=== PATIENT | female | born 1945 | race Caucasian/White ===

== ENCOUNTER → 2017-03-30 09:15 | Outpatient (CLI) | payer MEDICARE, OTHER ==
[~2017-03-30 09:15] MED LIST: CRESTOR10 MG PO; GLUCOPHAGE500 MG PO; LISINOPRIL-HCTZ1 T13 PO; LOPRESSOR25 MG PO; OMEPRAZOLE20 M1 PO; PROVENTIL HFA6.7 GM INH; SPIRIVA18 MCG INH; ULTRAM50 MG PO
--- NOTE | 2017-04-05 12:49 | EC ---
PATIENT:NAHED RESENDIZ DATE OF SERVICE: 03/30/17 SEX: F MEDICAL RECORD: [id number] DATE OF : 49 LOCATION:D[facility] AGE OF PATIENT: 71 ADMISSION DATE: 03/30/17 REFERRING PHYSICIAN: INTERPRETING PHYSICIAN: JAYSON BERTRAND MD ECHOCARDIOGRAM REPORT ECHO CHARGES 4 ECHO COMPLETE CLINICAL DIAGNOSIS: CP/DIZZINESS/HTN/CAD/ANGINA ECHOCARDIOGRAPHIC MEASUREMENTS (adult normal given) AC root (d.<3.7cm) 3.4 cm LV Septum d (<1.2 cm> 1.6 cm Valve Excursion 1.5 cm LV Septum (systole) 2.5 cm Left Atria (s.<4.0cm> 3.7 cm LVPW d(<1.2cm) 1.4 cm RV (d.<2.3cm) 2.8 cm LVPW (sytole) 2.0 cm LV diastole(<5.6CM) 5.2 cm MV E-F(>70mm/sec) cm LV systole 3.1 cm LVOT Diameter 1.8 cm MV exc.(>10mm) cm Est.ejection fraction (50-75%) % Pericardial Effusion N DOPPLER: LVIT cm/sec A 73.0 cm/sec E 101 cm/sec LA cm/sec RVSP 61.0 mmHg LVOT 104 cm/sec AOP1/2T m/s Asc. Ao 179 cm/sec RVOT 52.0 cm/sec RA cm/sec PA 79.0 cm/sec AV Gradient Peak 13.0 mmHg AV Mean 6.8 mmHg AV Area 1.6 cm MV Gradient Peak 5.1 mmHg MV Mean 1.7 mmHg MV Area cm COMMENTS: Voice Network Administrator: Jeremie HERMANOE Addressograph Operator: 4 Dr. Bertrand TAPE# PACS DATE OF SERVICE: 03/30/2017 PROCEDURE: Transthoracic echocardiogram FINDINGS: 1. The patient shows evidence of moderate left ventricular hypertrophy with preserved LV systolic function. Ejection fraction of 55% to 60%. 2. The mitral valve has mild mitral annular calcification. There is no evidence of significant mitral regurgitation. 3. The aortic valve has evidence of sclerosis without evidence of significant ECHOCARDIOGRAM REPORT [id number] NAHED RESENDIZ stenosis. There is trace aortic insufficiency. 4. The tricuspid valve has evidence of moderate tricuspid regurgitation with right ventricular systolic pressures at 50-55 mmHg. 5. The right ventricle appears to be mildly dilated and there is right ventricular hypertrophy with preserved right ventricular function. 6. Interatrial septum appears to be intact. 7. The right atrium appears to be mildly dilated. IMPRESSION: The patient has evidence of hypertensive heart disease, mild aortic sclerosis and moderate pulmonary hypertension. TRANSINT:[id number] Voice Confirmation ID: [id number] DOCUMENT ID: [id number] JAYSON BERTRAND MD at 1249 CC: [id number] DICTATION DATE: 04/02/17 0756 CALENDERING MACHINE OPERATOR: 04/02/17 0906 DEP CLI 03/30/17 [facility] [address] [place] [address]
[2017-05-09 07:29] VITALS: BMI 24.8
== END | disposition home or self-care (01) ==
LOC: D.ECHO 09:15
DX: I10 Essential (primary) hypertension (principal); R42 Dizziness and giddiness; R07.9 Chest pain, unspecified; I25.10 Atherosclerotic heart disease of native coronary artery without angina pectoris; Z95.1 Presence of aortocoronary bypass graft; I20.9 Angina pectoris, unspecified

== ENCOUNTER → 2017-04-16 15:58 | Outpatient (CLI) | payer MEDICARE, OTHER ==
[2017-05-09 07:29] VITALS: BMI 24.8
== END | disposition home or self-care (01) ==
LOC: D.LABREF 15:58
DX: I50.9 Heart failure, unspecified (principal)

== ENCOUNTER 2017-05-09 06:55 | Outpatient (CLI) | payer MEDICARE, OTHER ==
[~2017-05-09] VITALS: Ht 160 cm; Wt 63.6 kg
--- NOTE | ~2017-05-09 | HEMODYNAMI ---
PATIENT:NAHED RESENDIZ MEDICAL RECORD: [id number] : 49 LOCATION:[facility] ADMISSION DATE: 05/09/17 Generatedon:05/09/201711:03 Patient name: NAHED RESENDIZ Patient #: [id number] SSN: : 1945 Date of study: 05/09/2017 Page: Of Hemodynamic Procedure Report Patient Data Patient Demographics Procedure consent was obtained First Name: NAHED Gender: Female Last Name: ASTRID : 1945 [facility] Initial: MARIANNA Age: 71 year(s) Patient #: [id number] Race: Unknown Additional ID: [id number] Contact details Address: [address] [place] [address] State: [place] City: [facility] Zip code: [address] Past Medical History Allergies: No known allergies Admission Admission Data Admission Date: 05/09/2017 Admission Time: 6:55 Procedure Procedure Types Cath Procedure Diagnostic Procedure LHC LHC w/Coronaries w/Grafts Miscellaneous Procedures Moderate Sedation up to 15 minutes Peripheral Cath Diagnostic Procedure Cath Peripheral Renal Arteriogram Procedure Description Procedure Date Procedure Date: 05/09/2017 Procedure Start Time: 10:41 Procedure End Time: 11:03 Procedure Staff Name Function Lion Middleton MD Performing Physician Yu Palmer RT Monitor Margie Guevara RT Scrub Helen Uribe RN Nurse Procedure Data Cath Procedure Fluoroscopy Diagnostic fluoroscopy Total fluoroscopy Time: 5.2 time: 5.2 min min Diagnostic fluoroscopy Total fluoroscopy dose: 410 dose: 410 mGy mGy Contrast Material Contrast Material Type Amount (ml) Isovue 300 70 Entry Location Entry Primary Successful Side Size Upsize Upsize Entry Closure Succes sful Closure Location (Fr) 1 (Fr) 2 (Fr) Remarks Device Remarks Femoral Right 5 Fr Exoseal artery Estimated blood loss: 5 ml Diagnostic catheters Device Type Used For End Catheter Placement Cordis 5Fr JL 4.0 Left Coronary Catheter (MP) Angiography Cordis 5Fr 3DRC Catheter Right Coronary (MP) Angiography Cordis 5Fr 3DRC Catheter Internal mammary (MP) arteriography Cordis 5Fr Pigtail LV Angiography Catheter (MP) Cordis 5Fr Pigtail Aortic Root Catheter (MP) Angiography Cordis 5Fr Pigtail Renal Catheter (MP) arteriography with flush -selective Procedure Complications No complications Procedure Medications Medication Administration Route Dosage Oxygen NC 2 l/min Lidocaine 2% added to field 20 Heparin Flush Bag added to field 2 bags (1000units/500ml NS) 0.9% NaCl I.V. 100 ml/hr Versed I.V. 1 mg Fentanyl I.V. 25 mcg Hemodynamics Rest Heart Rate: 73 (bpm) Pressure Samples Time Site Value (mmHg) Purpose Heart Use Rate(bpm) 10:54 LV 162/4,24 EDP 63 10:54 AO 154/79(111) Pullback 68 10:54 LV 154/19,20 Pullback 68 Gradients Valve Time Site 1 Site 2 Mean SEP/DFP Peak To Heart Use (mmHg) (sec/min) Peak Rate (mmHg) (bpm) Aortic 10:54 LV AO 2 12 0 68 154/19,20 154/79(111) Calculations Valve P-P Mean Valve Index Valve Source Name Gradient Area Flow (cm2) Aortic 0 2 0 2 Snapshots Pre Cath Intra NCS Post Cath Vital Signs Time Heart Resp SPO2 etCO2 NIBP (mmHg) Rhythm Pain Sedation Rate (ipm) (%) (mmHg) Status Level (bpm) 10:30:01 61 23 95 14.2 143/93(113) NSR 0 (11) 10(A) , No pain 10:34:39 62 13 98 33 155/88(141) NSR 0 (11) 10(A) , No pain 10:39:24 61 21 98 36 145/76(125) NSR 0 (11) 10(A) , No pain 10:44:07 62 19 97 40.6 144/77(115) NSR 0 (11) 9(A) , No pain 10:48:51 60 19 97 38.3 149/76(111) NSR 0 (11) 9(A) , No pain 10:53:32 74 22 97 37.6 133/78(105) NSR 0 (11) 9(A) , No pain 10:58:31 63 18 98 32.3 Measuring NSR 0 (11) 10(A) , No pain 10:58:50 63 16 98 42.1 148/79(126) NSR 0 (11) 10(A) , No pain 11:03:30 60 22 98 39.8 159/81(128) NSR 0 (11) 10(A) , No pain Medications Time Medication Route Dose Verified Delivered Reason Notes Effe ctiveness by by 10:28:10 Oxygen NC 2 Lion Buffie used for l/min Kane Uribe RN procedure MD 10:28:24 Lidocaine 2% added 20ml Lion Lion for local to vial Kane Middleton MD anesthetic field 10:28:32 Heparin Flush added 2 Lion Lion used for Bag to bags Kane Middleton MD procedure (1000units/500ml field LIU NS) 10:29:03 0.9% NaCl I.V. 100 Lion Buffie Per ml/hr Kane Uribe RN physician 10:40:12 Versed I.V. 1 mg Lion Buffie for Kane Uribe RN sedation 10:40:18 Fentanyl I.V. 25 Lion Buffie for mcg Kane Uribe RN sedation Procedure Log Time Note 10:05:26 Time tracking: Regular hours 10:05:29 Plan of Care:Hemodynamics will remain stable., Cardiac rhythm will remain stable., Comfort level will be maintained., Respiratory function will remain adequate., Patient/ family verbilizes understanding of procedure., Procedure tolerated without complication., Recovers from procedure without complications.. 10:11:46 Helen Uribe RN sent for patient. Start room use. 10:13:38 Procedure type changed to Cath procedure, Diagnostic procedure, LHC, LHC w/Coronaries w/Grafts, Miscellaneous Procedures, Moderate Sedation up to 15 minutes, Peripheral Cath Diagnostic Procedure, Cath Peripheral, Renal Arteriogram 10:20:27 Patient received from Pre/Post Procedure Room to CCL 1 Alert and oriented. Tansferred to table in Supine position. 10:20:28 Warm blankets applied, and clovis hugger turned on for patient comfort. 10:20:29 Correct patient and procedure confirmed by team. 10:20:31 Signed procedure consent form obtained from patient. 10:20:32 ECG and BP/O2 sat monitors applied to patient. 10:20:33 Full Disclosure recording started 10:28:10 Oxygen 2 l/min NC was administered by Buffie Uribe RN; used for procedure; 10:28:24 Lidocaine 2% 20ml vial added to field was administered by Lion Middleton MD; for local anesthetic; 10:28:32 Heparin Flush Bag (1000units/500ml NS) 2 bags added to field was administered by Lion Middleton MD; used for procedure; 10:29:03 0.9% NaCl 100 ml/hr I.V. was administered by Helen Uribe RN; Per physician; 10:29:07 Vital chart was started 10:29:33 Rhythm: sinus rhythm 10:29:37 Baseline sample Acquired. 10:32:38 H&P Date Dictated: 05/07/2017 Within 30 days and on chart., H&P Addendum completed by physician on day of procedure. (MUST COMPLETE FOR ALL OUTPATIENTS). 10:32:40 Pre-procedure instructions explained to patient. 10:32:40 Pre-op teaching completed and patient verbalized understanding. 10:32:43 Family in waiting room. 10:32:45 Patient NPO since Midnight. 10:32:54 Patient allergic to No known allergies 10:32:56 Is the patient allergic to Iodine/contrast media? No. 10:32:57 Is patient on blood thinner?Yes 10:32:59 ACC The patient was administered the following blood thiners within the last 24 hours: ACCPlavix 10:33:01 Patient diabetic? Yes. 10:33:03 If diabetic: On Metformin? Yes 10:33:05 If on Metformin: Last Dose? 05/08/2017 10:33:08 Previous problem with sedation/anesthesia? No ? 10:33:09 Snore? Yes 10:33:10 Sleep apnea? No 10:33:11 Deviated septum? No 10:33:12 Opens mouth fully? Yes 10:33:13 Sticks out tongue? Yes 10:33:18 Airway obstruction? Yes COPD 10:33:20 Dentures? No ? 10:33:23 Pre procedure: right dorsailis pedis pulse 2+ Normal; easily identifiable; not easily obliterated 10:33:25 Patient pain scale 0/10 ?. 10:33:31 IV patent on arrival in left hand with 0.9% NaCl at [facility]. 10:33:35 Lab results completed and on chart. 10:33:38 Right groin area was prepped with chlora-prep and draped in sterile fashion 10:33:39 Alarms reviewed by R. N. 10:33:39 Sharps counted by scrub and verified by R.N. 10:33:45 Use device set Femoral Dx 10:33:46 Acist Syringe opened to sterile field. 10:33:47 Bag Decanter opened to sterile field. 10:33:47 Medline Cath Pack opened to sterile field. 10:33:48 Terumo 5Fr [place] Sheath opened to sterile field. 10:33:49 St Ashok 260cm J .035 wire opened to sterile field. 10:33:50 Acist Hand Control opened to sterile field. 10:33:50 Acist Manifold opened to sterile field. 10:33:51 Diagnostic Infinity 5Fr Multipack catheter opened to sterile field. 10:33:51 Tegaderm 4 x 4 opened to sterile field. 10:36:52 Physician paged 10:38:02 Final Timeout: patient, procedure, and site verified with staff and physician. All members of the team are in agreement. 10:38:05 Right groin site verified by team. 10:38:07 Physical assessment completed. ASA score P 2 - A patient with mild systemic disease as per Lion Middleton MD. 10:38:12 Sedation plan: IV Moderate Sedation Medication:Versed, Fentanyl 10:40:12 Versed 1 mg I.V. was administered by Helen Uribe RN; for sedation; 10:40:18 Fentanyl 25 mcg I.V. was administered by Helen Uribe RN; for sedation; 10:41:16 Procedure started. 10:41:29 Local anesthetic to right femoral artery with Lidocaine 2% by Lion Middleton MD.INITIAL ACCESS ONLY 10:43:08 Access obtained with 4Fr micropunture. 10:43:25 A 5 Fr sheath was inserted into the Right Femoral artery 10:43:58 A Cordis 5Fr JL 4.0 Catheter (MP) was advanced over the wire and used for Left Coronary Angiography. 10:46:40 Catheter removed. 10:47:13 A Cordis 5Fr 3DRC Catheter (MP) was advanced over the wire and used for Right Coronary Angiography. 10:50:22 A Cordis 5Fr 3DRC Catheter (MP) was advanced over the wire and used for Internal mammary arteriography.to LAD atretiic 10:51:41 Catheter removed. 10:52:21 A Cordis 5Fr Pigtail Catheter (MP) was advanced over the wire and used for LV Angiography. 10:54:08 LV gram done using MATA 10:54:10 LV hemodynamics recorded. 10:54:12 Injector settings: Ml/sec: 12, Volume: 8, 10:55:03 A Cordis 5Fr Pigtail Catheter (MP) was advanced over the wire and used for Aortic Root Angiography. 10:55:08 Injector settings: Ml/sec: 15, Volume: 15, 10:55:50 A Cordis 5Fr Pigtail Catheter (MP) was advanced over the wire and used for Renal arteriography with flush -selective. 10:56:06 Injector settings: Ml/sec: 15, Volume: 15, 10:56:35 Catheter removed. 10:56:47 Sheath removed intact; hemostasis achieved with Exoseal to the Right Femoral artery. 10:56:49 Procedure ended.(Physican Out) 10:57:05 Fluoroscopy time 05.20 minutes. 10:57:12 Flurop Dose total: 410 10:57:12 Fluoroscopy dose: 410 mGy 10:57:47 Contrast amount:Isovue 300 70ml. 10:57:49 Sharps counted by scrub and verified by R.N. 10:57:54 Insertion/operative site no bleeding no hematoma. 10:57:56 Post-op/insertion site Right Femoral artery dressed using a 4 x 4 and Tegaderm. 10:57:59 Post right femoral artery:stable, clean and dry 10:58:02 Post Procedure Pulses reassessed and unchanged 10:58:04 Post-procedure physical assessment completed. ASA score P 2 - A patient with mild systemic disease as per Lion Middleton MD. 10:58:07 Post procedure rhythm: unchanged. 10:58:10 Estimated blood loss: 5 ml 10:58:11 Post procedure instruction explained to patient.Patient verbalizes understanding. 10:58:12 Patient needs reinforcement of post procedure teaching. 10:58:12 Procedure and supply charges have been captured, reviewed, submitted and are correct. 11:00:16 Cordis 5Fr Exoseal opened to sterile field. 11:01:03 Cook 4Fr Micropuncture ([id number]) opened to sterile field. 11:01:23 Procedure Complication : No complications 11:01:25 See physician's report for complete and final results. 11:03:09 Vital chart was stopped 11:03:15 Report given to Pre/Post Procedure Room. 11:03:20 Patient transfered to Pre/Post Procedure Room with Stretcher. 11:03:37 Procedure ended. 11:03:37 Full Disclosure recording stopped 11:03:40 End room use (Document Last) Device Usage Item Name Manufacture Quantity Catalog Hospital Part Current Minimal Lot# / Number Charge Number Stock Stock Serial# Code Acist Syringe Acist 1 29040 298597 213596 578627 20 [employer] Bag Decanter Microtek 1 2002S 540908 79968 143831 5 Medical Inc. Medline Cath Cardinal 1 [id number] 348107 54185 459343 5 Pack Health Terumo 5Fr Terumo 1 NOR207 886103 641277 267517 [address] [place] Ashok 1 474279 920901 007715 786200 30 J .035 wire Acist Hand Acist 1 29813 350775 918421 259332 5 Control [employer] Inc Acist Acist 1 65047 961037 733007 176812 5 Manifold Medical Systems Inc Diagnostic Cardinal 1 [id number] 165241 24798 322509 30 Infinity 5Fr Health Multipack catheter Tegaderm 4 x 3M 1 1626W 565151 617116 686787 5 4 Cordis 5Fr JL Cardinal 1 798807 5 4.0 Catheter Health (MP) Cordis 5Fr Cardinal 1 142475 5 3DRC Catheter Health (MP) Cordis 5Fr Cardinal 1 368524 5 Pigtail Health Catheter (MP) Cordis 5Fr Cardinal 1 EX500 788518 561021 193296 10 Exoseal Health Cook 4Fr [facility] 1 [id number] 552182 949236 454247 5 Micropuncture ([id number]) Signature Audit [place] Stage Time Signature Unsigned Intra-Procedure 05/09/2017 Yu 11:03:53 AM Counts RT(R) Signatures Monitor : Yu Signature : Counts RT Date : Time : [facility] [address] [place] [address]
[2017-05-09] MEDS ORDERED: ULTRAM50 MG PO (07:19)
[2017-05-09] MEDS ORDERED: LOPRESSOR25 MG PO (07:19)
[2017-05-09] MEDS ORDERED: CRESTOR10 MG PO (07:20)
[2017-05-09] MEDS ORDERED: GLUCOPHAGE500 MG PO (07:20)
[2017-05-09] MEDS ORDERED: LISINOPRIL-HCTZ1 T13 PO (07:21)
[2017-05-09] MEDS ORDERED: OMEPRAZOLE20 M1 PO (07:21)
[2017-05-09] MEDS ORDERED: SPIRIVA18 MCG INH (07:21)
[2017-05-09] MEDS ORDERED: PROVENTIL HFA6.7 GM INH (07:22)
[2017-05-09 07:29] VITALS: BP 148/69; Ht 160 cm; Wt 63.6 kg
[2017-05-09 07:45] LABS: BASOPHILS 0.5 % (0-2); EOSINOPHILS 3.8 % (0-7); HEMATOCRIT 45.6 % (36.0-48.0); IMMATURE GRANULOCYTES 0.3 % (0-5); LYMPHOCYTES 24.6 % (15-50); MCH 30.8 pg (26.0-34.0); MCHC 32.9 g/dL (31.0-37.0); MCV 93.6 fL (80.0-100.0); MEAN PLATELET VOLUME 10.1 fL (7.4-10.4); MONOCYTES 7.5 % (2-11); NEUTROPHILS 63.3 % (40-80); PLATELET COUNT 215 10x3/uL (130-400); RBC 4.87 10x6/uL (4.00-5.40); RDW 12.3 % (11.5-14.5); WBC 12.5 10x3/uL (4.8-10.8)
[2017-05-09 08:01] LABS: ANION GAP 11.7 mmol/L (8-16); CALCIUM 9.1 mg/dL (8.5-10.1); CARBON DIOXIDE 32.6 mmol/L (21.0-32.0); CREATININE - SERUM 0.9 mg/dL (0.6-1.3); POTASSIUM - SERUM 4.3 mmol/L (3.5-5.1)
--- NOTE | 2017-05-09 12:02 | NUR ---
1140 LYING FLAT, ROOM AIR. VITALS ALL WNL. R GROIN 5F EXOSEAL C/D/I, PULSES PALP X 4. NO C/O CHEST PAIN. FAMILY AT BEDSIDE.
--- NOTE | 2017-05-09 12:11 | NUR ---
1210 RESTING WITH EYES CLOSED. ROOM AIR. NSR RATE 60 WNO C/O CHEST PAIN. PULSES PALP X 4. R GROIN REMAINS C/D/I.
--- NOTE | 2017-05-09 13:08 | NUR ---
1245 HOB ELEVATED, EATING TURKEY SANDWICH WITH FAMILY AT BEDSIDE. R GROIN REMAINS C/D/I. 1309 PIV REMOVED FROM L FOREARM WITH BANDAID APPLIED. UP TO BEDSIDE TO DRESS WITH DAUGHTER AT BEDSIDE.
--- NOTE | 2017-05-09 13:27 | NUR ---
D/C INSTRUCTIONS DISCUSSED WITH PATIENT AND FAMILY AT BEDSIDE. WHEELED OUT VIA WHEELCHAIR BY CATH TEAM.
== END 2017-05-09 13:28 | disposition home or self-care (01) ==
LOC: D.CATH 06:55
PROVIDERS: Internal Medicine Cardiovascular Disease
DX: I25.10 Atherosclerotic heart disease of native coronary artery without angina pectoris (principal); I25.810 Atherosclerosis of coronary artery bypass graft(s) without angina pectoris; I71.4 Abdominal aortic aneurysm, without rupture; R94.39 Abnormal result of other cardiovascular function study; I10 Essential (primary) hypertension; Z01.812 Encounter for preprocedural laboratory examination

== ENCOUNTER → 2017-05-30 08:44 | Outpatient (CLI) | payer MEDICARE, OTHER ==
[2017-05-09 07:29] VITALS: BMI 24.8
== END | disposition home or self-care (01) ==
LOC: D.CT 08:44
DX: I71.4 Abdominal aortic aneurysm, without rupture (principal)

== ENCOUNTER → 2017-07-27 19:17 | Outpatient (CLI) | payer MEDICARE, OTHER ==
[2017-05-09 07:29] VITALS: BMI 24.8
== END | disposition home or self-care (01) ==
LOC: D.LABREF 19:17
DX: N39.0 Urinary tract infection, site not specified (principal); R31.9 Hematuria, unspecified

== ENCOUNTER → 2017-08-14 18:03 | Outpatient (CLI) | payer MEDICARE, OTHER ==
[2017-05-09 07:29] VITALS: BMI 24.8
== END | disposition home or self-care (01) ==
LOC: D.LABREF 18:03
DX: N39.0 Urinary tract infection, site not specified (principal)

== ENCOUNTER 2017-08-23 06:50 | Day surgery (SDC) | payer MEDICARE, OTHER ==
[2017-08-22 15:40] LABS: HEMOGLOBIN 13.8 g/dL (12-16); MCH 29.6 pg (26.0-34.0); MCHC 32.9 g/dL (31.0-37.0); MCV 90.1 fL (80.0-100.0); MEAN PLATELET VOLUME 9.4 fL (7.4-10.4); RBC 4.66 10x6/uL (4.00-5.40); RDW 12.9 % (11.5-14.5); WBC 9.1 10x3/uL (4.8-10.8)
[2017-08-22 15:50] LABS: ANION GAP 9.6 mmol/L (8-16); CARBON DIOXIDE 30.8 mmol/L (21.0-32.0); CREATININE - SERUM 1.5 mg/dL (0.6-1.3); POTASSIUM - SERUM 4.4 mmol/L (3.5-5.1)
--- NOTE | ~2017-08-23 | OP ---
PATIENT NAME: NAHED RESENDIZ MEDICAL RECORD: [id number] :49 LOCATION:D.[facility] ADMISSION DATE: SURGEON: SCOTT GARCES MD DATE OF OPERATION: 08/23/2017 SURGEON: Scott Garces MD ANESTHESIA: MAC by Jeromy Elizondo CRNA PREOPERATIVE DIAGNOSIS: Questionable bladder mass seen on CT scan. PROCEDURE: Cystoscopy. FINDINGS: Single ureteral orifices bilaterally. Posterior bladder wall displaced anteriorly by the uterus. No bladder tumors seen. ESTIMATED BLOOD LOSS: None. CLINICAL HISTORY: This is a 71-year-old female, who is a former smoker. She has COPD and she has peripheral vascular disease. She was having a CT angiogram performed by Dr. Elizondo and there was some questionable bladder wall thickness on the CT angiogram. This thickness was seen in the right anterolateral wall of the bladder. Urine cytology has been negative. She comes today to have cystoscopy performed to make sure that there was no tumor in the bladder. She is not allergic to any medication. She was given Ancef. She was given slight ampicillin and sulbactam carton forming machine tender to the OR. DESCRIPTION OF PROCEDURE: The patient was given IV sedation. She was placed into dorsal lithotomy position and prepped and draped. A 17-Mauritanian cystoscope with 30-degree lens was used for visualization. The findings are as outlined above. We did not see any bladder tumors. The bladder was emptied through the scope and then the scope was removed. TRANSINT:[id number] Voice Confirmation ID: [id number] DOCUMENT ID: [id number] SCOTT GARCES MD at 1315 CC: [id number] DICTATION DATE: 08/23/17 1117 [employer] [employer] BRAKE COUPLER: 08/23/17 1149 [facility] [address] [place] [id number]
[~2017-08-23 06:50] MED LIST changes: +BREO ELLIPTA 11 EACH INH; +COZAAR25 MG PO; +HYDROCHLOROTHIA25 MG PO; +NITROSTAT0.4 MG SL
[2017-08-23 08:37] VITALS: BP 141/60; BMI 24.3
== END 2017-08-23 12:15 | disposition home or self-care (01) ==
LOC: D.OPS 06:50 → D.PAN 09:15 → D.OPS 10:25 → D.PAN 11:00 → D.OPS 12:15
PROVIDERS: Anesthesiology
DX: N32.89 Other specified disorders of bladder (principal); I25.10 Atherosclerotic heart disease of native coronary artery without angina pectoris; I10 Essential (primary) hypertension; E11.9 Type 2 diabetes mellitus without complications; K21.9 Gastro-esophageal reflux disease without esophagitis; J44.9 Chronic obstructive pulmonary disease, unspecified; Z87.891 Personal history of nicotine dependence; Z01.812 Encounter for preprocedural laboratory examination

== ENCOUNTER 2017-09-05 12:15 | Day surgery (SDC) | payer MEDICARE, OTHER ==
[~2017-09-05] VITALS: Ht 165.1 cm; Wt 66.4 kg
--- NOTE | ~2017-09-05 | OP ---
PATIENT NAME: NAHED RESENDIZ MEDICAL RECORD: [id number] :49 LOCATION:D.[facility] ADMISSION DATE: SURGEON: GHISLAINE ORLANDO DO DATE OF OPERATION: 09/05/2017 PROCEDURE: Colonoscopy with polypectomy. INDICATIONS FOR PROCEDURE: Diverticular disease as well as abnormal findings on CT scan. SCOPE: [employer] video pediatric colonoscope. MEDICATIONS: Propofol 270 mg IV per anesthesia. WITHDRAWAL TIME: Greater than 20 minutes. ESTIMATED BLOOD LOSS: Minimal. COMPLICATIONS: None. FINDINGS: Informed consent was given. The patient was made comfortable with the above medication. After reaching an adequate level of sedation by slow IV push, the patient was placed on her left side. A digital rectal examination was performed and was normal. The endoscope was then advanced under direct visualization to the cecum with visualization of the appendiceal orifice and ileocecal valve. The endoscope was slowly withdrawn, mucosa was carefully examined. The prep quality was poor to fair. Extensive irrigating and aspirating was performed to maximize visualization of the colonic loss. In the cecum, there were 5 separate polyps. They were all benign appearing and sessile and ranging in size from 2-5 mm in diameter. They were all removed using hot forceps in 1 piece and completely retrieved. In the ascending colon, there were 2 polyps. The first was a small benign appearing sessile polyp which measured approximately 4 mm in diameter. It was removed using hot forceps in 1 piece and completely retrieved. The second polyp was a slightly larger polyp which was benign appearing and sessile and measuring approximately 6-7 mm in diameter. It was removed using hot snare in 1 piece and completely retrieved. There was evidence of severe pandiverticulosis without evidence of diverticulitis on this examination. Retroflexion was performed in the rectum with visualization of grade II internal hemorrhoids without bleeding. The endoscope was withdrawn from the patient. The patient tolerated the procedure well and there were no complications. IMPRESSION: 1. Cecal polyps times 5 removed with hot forceps. 2. Ascending polyps times 2 removed with combination of hot forceps and hot snare. 3. Severe pandiverticulosis without diverticulitis. 4. Grade II internal hemorrhoids without bleeding. PLAN AND RECOMMENDATIONS: 1. Discharge home when recovery parameters are met. 2. Follow up biopsy specimen results. 3. High fiber diet. 4. Supplement diet with 1-2 tablespoons of Metamucil daily or any psyllium husk fiber. OPERATIVE REPORT [id number] ASTRIDJUNIORMYRIAM CABRAL 5. Continue current medications. 6. Recall colonoscopy in 2 years based on the number and types as well as the size of polyps removed on today's examination. TRANSINT:[id number] Voice Confirmation ID: [id number] DOCUMENT ID: [id number] GHISLAINE ORLANDO DO at 1119 CC: [id number] DICTATION DATE: 09/05/17 1503 CD REACTOR OPERATOR HEAD: 09/05/17 1526 [facility] 09/05/17 [facility] [address] [place] [address]
[2017-09-05 12:57] VITALS: BP 153/48; Ht 165.1 cm; Wt 66.4 kg
[2017-09-05 13:36] LABS: BASOPHILS 0.3 % (0-2); EOSINOPHILS 3.5 % (0-7); HEMATOCRIT 42.3 % (36.0-48.0); HEMOGLOBIN 13.9 g/dL (12-16); IMMATURE GRANULOCYTES 0.2 % (0-5); LYMPHOCYTES 32.8 % (15-50); MCH 29.6 pg (26.0-34.0); MCHC 32.9 g/dL (31.0-37.0); MEAN PLATELET VOLUME 9.5 fL (7.4-10.4); MONOCYTES 9.4 % (2-11); NEUTROPHILS 53.8 % (40-80); PLATELET COUNT 207 10x3/uL (130-400); WBC 9.3 10x3/uL (4.8-10.8)
[2017-09-05 13:47] LABS: CALC OSMOLALITY 280 mosm/kg (275-300); CALCIUM 9.1 mg/dL (8.5-10.1); CARBON DIOXIDE 30.1 mmol/L (21.0-32.0); CHLORIDE - SERUM 104 mmol/L (98-107); CREATININE - SERUM 0.8 mg/dL (0.6-1.3); POTASSIUM - SERUM 4.4 mmol/L (3.5-5.1); SODIUM 141 mmol/L (136-145); UREA NITROGEN 13 mg/dL (7-18); eGFR NON AFRICAN AMERICAN 75 mL/min (90-120)
[2017-09-05 13:49] LABS: GLUCOSE 99 mg/dL (74-106)
== END 2017-09-05 16:10 | disposition home or self-care (01) ==
LOC: D.OPS 12:15
PROVIDERS: Anesthesiology
DX: K76.0 Fatty (change of) liver, not elsewhere classified (principal); R93.8 Abnormal findings on diagnostic imaging of other specified body structures; D12.2 Benign neoplasm of ascending colon; D12.0 Benign neoplasm of cecum; K64.1 Second degree hemorrhoids; I10 Essential (primary) hypertension; E11.9 Type 2 diabetes mellitus without complications; K21.9 Gastro-esophageal reflux disease without esophagitis; J44.9 Chronic obstructive pulmonary disease, unspecified; Z01.812 Encounter for preprocedural laboratory examination

== ENCOUNTER → 2017-09-18 16:40 | Outpatient (CLI) | payer MEDICARE, OTHER ==
[2017-09-05 12:57] VITALS: BMI 24.3
[2017-09-18 20:26] LABS: CHOL - HDL RATIO 2.8 ratio (2.3-4.1); LDL-HDL RATIO 1.3 ratio (1.5-3.5)
== END | disposition home or self-care (01) ==
LOC: D.LABREF 16:40
PROVIDERS: Internal Medicine Cardiovascular Disease
DX: E78.5 Hyperlipidemia, unspecified (principal)

== ENCOUNTER → 2017-10-25 16:31 | Outpatient (CLI) | payer MEDICARE, OTHER ==
[2017-09-05 12:57] VITALS: BMI 24.3
[2017-10-25 17:21] LABS: CHOL - HDL RATIO 2.4 ratio (2.3-4.1); LDL-HDL RATIO 1.1 ratio (1.5-3.5)
== END | disposition home or self-care (01) ==
LOC: D.LABREF 16:31
PROVIDERS: Internal Medicine Cardiovascular Disease
DX: E78.5 Hyperlipidemia, unspecified (principal)

== ENCOUNTER → 2017-12-06 08:27 | Outpatient (CLI) | payer MEDICARE, OTHER ==
[2017-09-05 12:57] VITALS: BMI 24.3
[~2017-12-06 08:27] MED LIST changes: +BAYER CHEWABLE81 MG PO; +HYDROCODON-ACE1 EAC7 PO; +HYDROCODONE-APA1 TAB PO; +VOLTAREN75 MG PO
== END | disposition home or self-care (01) ==
LOC: D.CT 11-26 09:30
DX: I71.4 Abdominal aortic aneurysm, without rupture (principal)

== ENCOUNTER 2017-12-18 05:00 | Inpatient (IN) | payer MEDICARE, OTHER ==
[2017-12-17 11:44] LABS: BASOPHILS 0.4 % (0-2); EOSINOPHILS 3.8 % (0-7); HEMATOCRIT 47.9 % (36.0-48.0); HEMOGLOBIN 15.7 g/dL (12-16); IMMATURE GRANULOCYTES 0.2 % (0-5); LYMPHOCYTES 36.9 % (15-50); MCH 30.3 pg (26.0-34.0); MCHC 32.8 g/dL (31.0-37.0); MCV 92.3 fL (80.0-100.0); MEAN PLATELET VOLUME 9.9 fL (7.4-10.4); MONOCYTES 7.6 % (2-11); NEUTROPHILS 51.1 % (40-80); PLATELET COUNT 195 10x3/uL (130-400); RBC 5.19 10x6/uL (4.00-5.40); RDW 13.2 % (11.5-14.5); WBC 10.4 10x3/uL (4.8-10.8)
[2017-12-17 12:49] LABS: ALBUMIN 3.6 g/dL (3.4-5.0); ANION GAP 8.4 mmol/L (8-16); BILIRUBIN - TOTAL 0.3 mg/dL (0.2-1.3); CALCIUM 9.6 mg/dL (8.5-10.1); CARBON DIOXIDE 32.7 mmol/L (21.0-32.0); CREATININE - SERUM 0.9 mg/dL (0.6-1.3); POTASSIUM - SERUM 5.1 mmol/L (3.5-5.1); PROTEIN - SERUM 6.9 g/dL (6.4-8.2)
[2017-12-17 12:55] LABS: APTT 27.6 SECONDS (22.8-39.4); INR 0.94 (0.85-1.17); PROTIME 12.1 SECONDS (11.6-15.0)
[2017-12-17 13:03] LABS: APPEARANCE CLEAR (CLEAR); BACTERIA FEW /hpf (NONE SEEN); BILIRUBIN NEGATIVE (NEGATIVE); COLOR YELLOW (YELLOW); EPITHELIAL CELLS 0-5 /hpf (0-5); GLUCOSE NEGATIVE (NEGATIVE); KETONE NEGATIVE (NEGATIVE); NITRITE NEGATIVE (NEGATIVE); PROTEIN 2+ mg/dL (NEGATIVE); RED CELLS - URINE RARE /hpf (0-5); SPECIFIC GRAVITY 1.005 (1.005-1.020); UROBILINOGEN NORMAL (NORMAL)
[2017-12-18] VITALS (39 sets, daily range): BP systolic 104–146; BP diastolic 40–87; BMI 25.3; BMI 25.9
[~2017-12-18] VITALS: Ht 165.1 cm; Wt 71.1 kg
--- NOTE | ~2017-12-18 | HP ---
PATIENT: NAHED RESENDIZ MEDICAL RECORD: [id number] ACCOUNT: [id number] LOCATION:[facility].CV03 : 47 ADMISSION DATE: 12/18/17 HISTORY AND PHYSICAL EXAMINATION NAHED Melton (72yo, F) ID# [id number]. Date/Time12/13/2017 11:85GIETW21/28/1948[facility] Dept.[facility] ClinicProviderEDMARISSA JACOBSON MDInsuranceMed Primary: [place] Insurance # : [id number] PCP : JAE ROSAS Referring Provider Name : JAE ROSAS Employer Name : RETIRED Med Secondary: FOR LIFE ( - MEDICARE SUPPLEMENT) Insurance # : [id number] Employer Name : RETIRED Med Tertiary: [place] Insurance # : [id number] Employer Name : RETIRED Prescription: CMX - Member is eligible. Prescription: ESI1 - Member is eligible. Prescription: [facility] MEDICAID ADMINISTRATION - Member is eligible. Chief Complaint Coronary artery disease Followup: Abdominal aortic aneurysm s/p CABG x 3 10/22/06 following AAA six months f/u w CT abd from [facility] Patient's Care Team Primary Care Provider (): JAE ROSAS: [address] [place] [address], , Referring Provider (): JAE ROSAS: [address] [place] [address], , Patient's Pharmacies [facility] [facility] ([facility]): [address], [place] [address], , Vitals BP:138/68 sitting L arm 12/13/2017 11:56 amBP Cuff Size:adult 12/13/2017 11:56 amHR:66,reg 12/13/2017 11:56 amHt:5 ft 5 in 12/13/2017 11:52 amWt:152 lbs 12/13/2017 11:56 amNotes:no complaints really. Abd hurts sometimes.12/13/2017 11:56 amBMI:25.3 12/13/2017 11:56 amAllergies Reviewed Allergies NKDAMedications Reviewed Medications Breo Ellipta 100 mcg-25 mcg/dose powder for azcqhsgpvc51/02/18 filledCaremarkBreo Ellipta 200 mcg-25 mcg/dose powder for vkfeydxayq15/01/18 filledCaremarkhydroCHLOROthiazide 25 mg xgpimn44/01/18 filledCaremarkHYDROcodone 5 mg-acetaminophen 325 mg npvwyk77/13/17 filledCaremarklosartan 25 mg uzlyrh67/01/18 filledCaremarkmetFORMIN 500 mg ydeera78/02/18 filledCaremarkmetoprolol tartrate 25 mg /01/18 filledCaremarkNitrostat 0.[address] 1 tablet(s) by sublingual route.05/22/17 enteredKathy Wilsonomeprazole 20 mg capsule,delayed wujapnx54/02/18 filledCaremarkrosuvastatin 10 mg tablet Take 1 tablet(s) every day by oral route.06/08/17 filledCaremarkSpiriva with HandiHaler 18 mcg and inhalation ykjybtct67/15/18 filledCaremarktraMADol 50 mg bsifdn14/01/18 filledCaremarkVentolin HFA 90 mcg/actuation aerosol /01/18 filledCaremarkProblems HISTORY AND PHYSICAL [id number] NAHED RESENDIZ Reviewed Problems Abdominal aortic aneurysm - Onset: 05/22/2017 Female stress incontinence - Onset: 07/27/2017 Urinary tract infectious disease - Onset: 08/14/2017 Coronary arteriosclerosis - Onset: 12/13/2017 bladder wall thickening Family History Reviewed Family History Sister- Heart diseaseNotes family history of cancer but not which relativeSocial History Reviewed Social History Cardiology Family history of heart disease?: Y Smoking Status: Current every day smoker Smoker (1 PPD) High Cholesterol: Y High blood pressure: Y Overweight: Y Obese: N Diabetes: Y Tobacco-years of use: 40 Surgical History Reviewed Surgical History Cystoscopy Hysterectomy/bladder repair Cystoscopy - 08/23/2017 CABG - 10/22/2006 [facility] History (not configured) Obstetric History Obstetric History not reviewed (last reviewed 08/14/2017) Past Medical History Reviewed Past Medical History Bladder Problems: Y - thickening COPD: Y Chest Pain: Y Cold feet and legs: Y Coronary Artery Disease: Y Dizzy Spells: Y Emphysema: Y GERD: Y Heart Disease: Y Hyperlipidemia: Y Hypertension: Y Shortness of Breath: Y Documents for Discussion Discussed the following documents: CT, ANGIOGRAM, ABDOMEN, W/WO CONTRAST - 12/06/17 Notes - enlarging abdominal aortic aneurysm Screening HISTORY AND PHYSICAL [id number] NAHED RESENDIZ None recorded. HPI Peripheral Vascular Disease Reported by patient. Location: abdomen Quality: aching Severity: not limiting Onset/Timing: intermittent Alleviating Factors: rest Associated Symptoms: no weakness; no numbness; no paresthesias; no skin discoloration; no fever enlarging abdominal aortic aneurysm ROS Patient reports exercise intolerance but reports no fever, no night sweats, no significant weight gain, and no significant weight loss. She reports shortness of breath when walking and shortness of breath when lying down but reports no chest pain, no arm pain on exertion, no palpitations, and no known heart murmur. She reports shortness of breath but reports no cough, no wheezing, and no coughing up blood. She reports abdominal pain but reports no vomiting, normal appetite, no diarrhea, not vomiting blood, no nausea, and no constipation. She reports no dry eyes, no irritation, and no vision change. She reports no difficulty hearing and no ear p ain. She reports no frequent nosebleeds and no nose/sinus problems. She reports no sore throat, no bleeding gums, no snoring, no dry mouth, no mouth ulcers, no oral abnormalities, and no teeth problems. She reports no jugular vein distension and no swolle n glands. She reports no incontinence, no difficulty urinating, no hematuria, and no increased frequency. She reports no muscle aches, no muscle weakness, no arthralgias/joint pain, no back pain, and no swelling in the extremities. She reports no abnormal m ole, no jaundice, and no rashes. She reports no loss of consciousness, no weakness, no numbness, no seizures, no dizziness, and no headaches. She reports no depression, no sleep disturbances, feeling safe in relationship, and no alcohol abuse. She reports no fatigue. She reports no swollen glands and no bruising. She reports no runny nose, no sinus pressure, no itching, no hives, and no frequent sneezing. ROS as noted in the HPI Physical Exam Patient is a 72-year-old female. Constitutional: General Appearance well nourished and developed and healthy-appearing. Level of Distress NAD. Ambulation ambulating normally. Cardiovascular: Apical Impulse not displaced or no thrill. Heart Auscultation normal s1 and s2; no murmurs, rubs, or gallops; and RRR. Arterial Pulses no abdominal aorta bruits, femoral bruits, or popliteal bruits and 2+ bilateral, carotid 2+ bilateral, femoral 2+ bilateral, popliteal 2+ bilateral, and dorsalis pedis 2+ bilateral. Edema no edema or varicosities. Lungs: Repiratory Effort no dyspnea. Percussion no dullness or flatness and hyperresonance . Auscultation no wheezing, rhonchi, or rales / crackles and breathing sounds normal, good air movement, and CTA except as noted. Abdomen: Bowl Sounds normal. Inspection and Palpation no tenderness, guarding, masses, or rebound tenderness and soft and non-distended; abdominal aortic aneurysm nontender. Liver non-tender and no hepatomegaly. Spleen non-tender and no splenomegaly. Hernia none palpable. HISTORY AND PHYSICAL [id number] NAHED RESENDIZ Musculoskeletal System: Gait And Stance normal gait and stance. Digits and Nails normal nails and no cyanosis. Neurologic: Cranial Nerves grossly intact. Reflexes DTRs 2+ bilaterally throughout. Sensation grossly intact. Lymph Nodes: Lymph Nodes no cervical LAD, supraclavicular LAD, axillary LAD, or inguinal LAD. Eyes: Lids and Conjunctivae no discharge or pallor and non-injected. Pupils PERRLA. Cornea grossly intact. EOM EOMI. Lens clear. Sclera non-icteric. Neck: Neck no masses, enlarged lymph nodes, or carotid bruits and supple and trachea midline. Thyroid no enlargement or nodules and non-tender. Skin: Inspection and Palpation no rash, lesions, ulcers, jaundice, or abnormal nevi. Assessment / Plan enlarging abdominal aortic aneurysm 1. Abdominal aortic aneurysm I71.4: Abdominal aortic aneurysm, without rupture 2. Coronary arteriosclerosis I25.10: Atherosclerotic heart disease of elem coronary artery without angina pectoris Discussion Notes wwe will schedule for aneurysm repair endovascular versus open. I have discussed the patient's disease process with her in detail as well as the alternative methods of treatment we discussed endovascular and open repair of abdominal aortic aneurysm including the expected benefits and risk which include bleeding, infection, stroke, , and the imponderables. Scheduled for surgery with MEHRDAD Alvarez MD at 1309 CC: [id number] DICTATION DATE: 12/13/17 1140 FINDING FASTENER: DM 12/17/17 1014 DIS IN 12/21/17 [facility] [address] [id number]
--- NOTE | ~2017-12-18 | CN ---
PATIENT NAME:NAHED RESENDIZ MEDICAL RECORD: [id number] : 49 LOCATION:[facility]CV03 ADMIT DATE: 12/18/17 ACCOUNT: [id number] CONSULTING PHYSICIAN: DEMARIO VILLAREAL MD REFERRING PHYSICIAN: BISMARK JACOBSON MD DATE OF CONSULTATION: 12/20/2017 CONSULT REQUESTING PHYSICIAN: Bismark Jacobson MD REASON FOR CONSULTATION: Hypoxia. HISTORY OF PRESENT ILLNESS: Ms. Resendiz is a 72-year-old female who has a history of COPD and chronic hypoxic respiratory failure, but the patient is using oxygen, mainly at nighttime. The patient underwent AAA repair and since procedure, the patient stayed hypoxic and required nasal cannula oxygen. Now, she is feeling better. She is saturating 93% to 94% on room air. Denies any fever and chill. No wheezing. No coughing. No chest pain. No sputum production. REVIEW OF SYSTEMS: Mainly in the history of present illness. PAST MEDICAL HISTORY: 1. COPD. 2. Ex-smoker. 3. Abdominal aortic aneurysm. 4. Hypertension. 5. Hypercholesterolemia. 6. She has gastroesophageal reflux disease as well. PAST SURGICAL HISTORY: 1. She has a cystoscopy. 2. Hysterectomy. 3. CABG in September 2006. 4. She also has gynecological history. ALLERGIES: No known drug allergy. MEDICATIONS: Videolicious is reviewed. PERSONAL AND SOCIAL HISTORY: The patient is an ex-smoker for 40 years. She is a nondrinker. FAMILY HISTORY: Noncontributory. PHYSICAL EXAMINATION: GENERAL: Now, the patient is sitting in chair. She is not in acute distress. VITAL SIGNS: Blood pressure is 104/48, pulse is 59, respiration is 21, temperature is 98.6, and SpO2 is 91% to 93% on room air. HEENT: Conjunctivae are pink. Sclerae are not icteric. NECK: Supple, no JVD. CHEST: There are bilateral crackles. No wheezing. HEART: Rhythm regular, normal sound, no murmur. ABDOMEN: Soft, bowel sounds present. No hepatosplenomegaly. RECTAL: Deferred. EXTREMITIES: No cyanosis, no clubbing, no pedal edema. CONSULT REPORT [id number] NAHED RESENDIZ SKIN: Warm, normal turgor. CENTRAL NERVOUS SYSTEM: The patient is awake and alert. There are no obvious cranial nerve abnormality. The gait was not tested. IMAGING: The chest radiograph on 12/19/2017, there is increased interstitial marking and marked pulmonary venous congestion. OTHER LABORATORY DATA: CBC: The WBC is 40.6, hemoglobin 13, hematocrit is 40.7, the platelet count is 177. IMPRESSION: 1. Weqom-wr-estynha hypoxic respiratory failure. 2. Pulmonary edema. 3. Occult atelectasis. 4. Chronic obstructive pulmonary disease without acute exacerbation. 5. Leukocytosis post-surgery. 6. Status post abdominal aortic aneurysm repair. RECOMMENDATION: 1. Albuterol and ipratropium nebulizer q.i.d., start on Brovana, budesonide nebulizer. 2. Acapella and incentive spirometry q.2 hourly if the patient is awake. I will hold on any antibiotic and IV steroid at this point. If the patient is stable, she can go home tomorrow pulmonary point of view. Dr. Jacobson, thank you for involving me in the care of Ms. Resendiz. TRANSINT:[id number] Voice Confirmation ID: [id number] DOCUMENT ID: [id number] DEMARIO VILLAREAL MD at 1110 CC: [id number] DICTATION DATE: 12/20/17 1540 MARKET RESEARCH INTERVIEWER: 12/20/17 1636 DIS IN 12/21/17 [address] [place] [address]
--- NOTE | ~2017-12-18 | OP ---
PATIENT NAME: NAHED RESENDIZ MEDICAL RECORD: [id number] :49 LOCATION:D.[facility]I D.CV03 ADMISSION DATE:12/18/17 SURGEON: MEHRDAD ELIZONDO MD DATE OF OPERATION: 12/18/2017 SURGEON: Mehrdad Elizondo MD ANESTHESIA: General endotracheal, Dr. Garibay. OPERATIONS PERFORMED: 1. Endovascular stent repair of abdominal aortic aneurysm. 2. Open femoral exposure bilaterally, 32599-18. 3. Placement of aortobiiliac endograft, [address]. PREOPERATIVE DIAGNOSIS: Expanding abdominal aortic aneurysm. POSTOPERATIVE DIAGNOSIS: Expanding abdominal aortic aneurysm. INDICATION FOR OPERATION: Expanding abdominal aortic aneurysm. Fluoro time was 10 minutes 12 seconds. Contrast 90 mL. FINDINGS OF THE OPERATION: 1. Main body 23 x 14 x 103. 2. Extension right iliac 16 x 10 x 124. 3. Extension left iliac 16 x 10 x 124. ESTIMATED BLOOD LOSS: Less than 100 cc. PROCEDURE: After informed consent, adequate preoperative medication, and evaluation, the patient was brought to the operating room and placed on the table in supine position. After induction of general endotracheal anesthesia and application of appropriate monitoring devices, chest, abdomen, and both legs were prepped and draped in sterile field utilizing Betadine scrub, alcohol, and Betadine solution. Betadine-impregnated drape was also used. Bilateral oblique groin incisions were made above the inguinal ligament. Dissection was carried down to the fascia. Hemostasis was maintained with electrocautery. The distal iliac and common femoral arteries were dissected free of surrounding structures bilaterally. Both were accessed with mini stick technique and 7-Albanian sheath. A pigtail catheter was placed through the left iliac and an aortogram was performed, demonstrating anatomy and large aorta. The right side was cannulated with a wire and exchanged for a stiff wire. The sheath was removed. The main body was placed just below the renal arteries and deployed as well as the upper hooks. The contralateral gate was then cannulated with Kumpe catheter and Glidewire. Exchange was made for a stiff wire. A retrograde arteriogram was performed, demonstrated the hypogastric. Measurements were made and left iliac extension deployed. Attention was then turned towards the right. The main body was deployed, removed, and exchange made for a sheath. The remainder of the right intervention was done through the sheath. An extension was placed and deployed. Bilateral balloons were used to inflate the main body and limbs. An aortogram was then performed that demonstrated good position of the graft and good flow without endoleaks. The wires, catheters, and sheaths were removed and the arteries were closed bilaterally in 2 layers utilizing running 6-0 Prolene suture. All maneuvers to remove trapped air performed. The patient was given a calculated dose of protamine to reverse the heparin given as the first puncture OPERATIVE REPORT [id number] NAHED RESENDIZ was made. Hemostasis was assured. Wounds were irrigated with copious amounts of antibiotic solution and normal saline. There was no active bleeding. Instrument count and sponge count were correct times 2. The wound was closed in layers utilizing 2-0 Vicryl and 3-0 Vicryl on the deep subcutaneous tissue. Superficial subcutaneous tissue was approximated with 3-0 Vicryl and skin was approximated with 5-0 subcuticular Monocryl. Sterile dressings were applied. The patient tolerated the procedure well and was transferred to [facility] ICU in stable condition. TRANSINT:[id number] Voice Confirmation ID: [id number] DOCUMENT ID: [id number] MEHRDAD ELIZONDO MD at 1309 CC: [id number] DICTATION DATE: 12/18/17 1043 INFORMATION TECHNOLOGY AUDITOR: 12/18/17 1313 DIS IN 12/21/17 [id number] [place] [address]
[~2017-12-18 05:00] MED LIST changes: -BAYER CHEWABLE81 MG PO; -HYDROCODON-ACE1 EAC7 PO; -HYDROCODONE-APA1 TAB PO; -VOLTAREN75 MG PO
[2017-12-19] VITALS (26 sets, daily range): BP systolic 109–146; BP diastolic 42–57
[2017-12-19 06:10] LABS: HEMATOCRIT 40.7 % (36.0-48.0); MCH 30.1 pg (26.0-34.0); MCHC 31.9 g/dL (31.0-37.0); MCV 94.2 fL (80.0-100.0); MEAN PLATELET VOLUME 9.9 fL (7.4-10.4); RBC 4.32 10x6/uL (4.00-5.40); RDW 13.4 % (11.5-14.5)
[2017-12-19 06:14] LABS: WBC 14.6 10x3/uL (4.8-10.8)
[2017-12-19 06:29] LABS: ANION GAP 9.1 mmol/L (8-16); CALCIUM 8.4 mg/dL (8.5-10.1); CARBON DIOXIDE 30.2 mmol/L (21.0-32.0); CREATININE - SERUM 1.1 mg/dL (0.6-1.3)
[2017-12-19 06:30] LABS: POTASSIUM - SERUM 4.3 mmol/L (3.5-5.1)
[2017-12-20] VITALS (24 sets, daily range): BP systolic 104–151; BP diastolic 43–69; Ht 165.1 cm; Wt 71.1 kg
[2017-12-21] VITALS (7 sets, daily range): BP systolic 131–156; BP diastolic 57–71
[2017-12-21 06:28] LABS: BASOPHILS 0.1 % (0-2); EOSINOPHILS 1.9 % (0-7); HEMATOCRIT 38.8 % (36.0-48.0); HEMOGLOBIN 12.4 g/dL (12-16); IMMATURE GRANULOCYTES 0.3 % (0-5); LYMPHOCYTES 17.3 % (15-50); MCH 29.7 pg (26.0-34.0); MEAN PLATELET VOLUME 10.7 fL (7.4-10.4); MONOCYTES 10.3 % (2-11); NEUTROPHILS 70.1 % (40-80); PLATELET COUNT 166 10x3/uL (130-400); RBC 4.17 10x6/uL (4.00-5.40); RDW 13.3 % (11.5-14.5)
[2017-12-21 07:05] LABS: CALCIUM 8.5 mg/dL (8.5-10.1); CARBON DIOXIDE 29.6 mmol/L (21.0-32.0); CHLORIDE - SERUM 105 mmol/L (98-107); GLUCOSE 136 mg/dL (74-106); POTASSIUM - SERUM 3.8 mmol/L (3.5-5.1); SODIUM 141 mmol/L (136-145); eGFR NON AFRICAN AMERICAN 75 mL/min (90-120)
[2017-12-21 07:06] LABS: CALC OSMOLALITY 284 mosm/kg (275-300); CREATININE - SERUM 0.8 mg/dL (0.6-1.3); UREA NITROGEN 19 mg/dL (7-18)
[2017-12-21] MEDS ORDERED: HYDROCODONE-APA1 TAB PO (08:49)
[2017-12-21] MEDS ORDERED: BAYER CHEWABLE81 MG PO (08:50)
== END 2017-12-21 12:54 | disposition home or self-care (01) | DRG 268 ==
LOC: D.SDCHOLD 05:00 → D.CVICU 05:00 → D.SDCHOLD 07:30 → D.CVICU 10:04
PROVIDERS: Internal Medicine Cardiovascular Disease; Internal Medicine Pulmonary Disease
PROC: 04V03DZ Restriction of Abdominal Aorta with Intraluminal Device, Percutaneous Approach (ICD-10-PCS; principal; 2017-12-18 07:30)
DX: I71.4 Abdominal aortic aneurysm, without rupture (principal); J96.21 Acute and chronic respiratory failure with hypoxia; I25.10 Atherosclerotic heart disease of native coronary artery without angina pectoris; J44.9 Chronic obstructive pulmonary disease, unspecified; F17.200 Nicotine dependence, unspecified, uncomplicated; I10 Essential (primary) hypertension; E78.00 Pure hypercholesterolemia, unspecified; K21.9 Gastro-esophageal reflux disease without esophagitis; E11.9 Type 2 diabetes mellitus without complications; E78.5 Hyperlipidemia, unspecified; Z95.1 Presence of aortocoronary bypass graft; D72.829 Elevated white blood cell count, unspecified

== ENCOUNTER 2018-01-08 16:05 | Emergency (ER) | payer MEDICARE, OTHER ==
[~2018-01-08] VITALS: Ht 165.1 cm; Wt 65.5 kg
[~2018-01-08 16:05] MED LIST changes: +BAYER CHEWABLE81 MG PO; +HYDROCODONE-APA1 TAB PO
[2018-01-08 16:15] VITALS: Ht 165.1 cm; Wt 65.5 kg
[2018-01-08] MEDS ORDERED: ULTRAM50 MG PO (16:24)
[2018-01-08] MEDS ORDERED: VOLTAREN75 MG PO (20:14)
[2018-01-08] MEDS ORDERED: HYDROCODON-ACE1 EAC7 PO (20:14)
[2018-01-08 20:42] VITALS: BP 157/80
== END 2018-01-08 20:43 | disposition home or self-care (01) ==
LOC: D.ER 16:05
DX: S92.901A Unspecified fracture of right foot, initial encounter for closed fracture (principal); X58.XXXA Exposure to other specified factors, initial encounter; Y93.89 Activity, other specified; Y92.019 Unspecified place in single-family (private) house as the place of occurrence of the external cause; M79.671 Pain in right foot; E11.9 Type 2 diabetes mellitus without complications; I10 Essential (primary) hypertension; J44.9 Chronic obstructive pulmonary disease, unspecified; K21.9 Gastro-esophageal reflux disease without esophagitis

== ENCOUNTER → 2018-08-13 08:24 | Outpatient (CLI) | payer MEDICARE, OTHER ==
[2018-01-08 16:15] VITALS: BMI 24.0
[~2018-08-13 08:24] MED LIST changes: +HYDROCODON-ACE1 EAC7 PO; +VOLTAREN75 MG PO
== END | disposition home or self-care (01) ==
LOC: D.CT 08:24
DX: I71.4 Abdominal aortic aneurysm, without rupture (principal)

== ENCOUNTER → 2019-01-28 11:53 | Outpatient (CLI) | payer MEDICARE, OTHER ==
[2018-01-08 16:15] VITALS: BMI 24.0
== END | disposition home or self-care (01) ==
LOC: D.CT 11:53
PROVIDERS: ATTEND Internal Medicine Cardiovascular Disease
DX: I71.4 Abdominal aortic aneurysm, without rupture (principal)

== ENCOUNTER → 2020-02-02 09:26 | Outpatient (CLI) | payer MEDICARE, OTHER ==
[2018-01-08 16:15] VITALS: BMI 24.0
== END | disposition home or self-care (01) ==
LOC: D.CT 09:26
PROVIDERS: ATTEND Internal Medicine Cardiovascular Disease
DX: I71.4 Abdominal aortic aneurysm, without rupture (principal)